=== PATIENT | male | born 1940 | race Caucasian/White ===

== ENCOUNTER 2018-06-08 08:44 | Inpatient (IN) | payer OTHER ==
[2018-06-08] MEDS ORDERED: fentaNYL 100 MCG/2 ML INJ ONE ×3 (08:51→09:09)
[2018-06-08 09:05] LABS: PLATELET COUNT 218 10^3/uL (150-400)
[2018-06-08] MEDS ORDERED: IOPAMIDOL (ISOVUE-300) 100 ML BTL ONE (09:06)
[2018-06-08 09:22] LABS: INR 1.07 (0.83-1.16); PROTIME(PATIENT) 14.1 SEC (12.0-15.0)
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
[2018-06-08] MEDS ORDERED: ONDANSETRON DISINTEGRATING 4 MG TAB PO PRN (09:57)
[2018-06-08] MEDS ORDERED: ONDANSETRON 4 MG/2 ML VIAL IVP PRN (09:57)
[2018-06-08] MEDS ORDERED: ACETAMINOPHEN 325 MG TAB PO PRN (09:57)
[2018-06-08] MEDS: HYDROCODONE/APAP 5/325 TAB PO PRN (11:02)
--- NOTE | 2018-06-08 12:25 | ASMTCAGE ---
CAGE Additional Comments CAGE questions not applicable, alcohol not a factor, pt denies drinking Date Signed: 06/08/2018 12:25 PM Electronically Signed By:Loulou Balderas RN
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
[2018-06-08] MEDS: IBUPROFEN 600 MG TAB PO SCH ×2 (14:37→22:27)
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
[2018-06-08] MEDS: sulfaSALAzine 500 MG TAB PO SCH (22:30)
[2018-06-09] MEDS: IBUPROFEN 600 MG TAB PO SCH ×3 (05:15→21:18)
[2018-06-09 05:44] LABS: PLATELET COUNT 174 10^3/uL (150-400)
[2018-06-09] MEDS ORDERED: ESCITALOPRAM OXALATE 10 MG TAB PO SCH (09:00)
[2018-06-09] MEDS ORDERED: FLUTICASONE/SALMETER 250/50MCG DISKUS IH SCH (09:00)
[2018-06-09] MEDS: sulfaSALAzine 500 MG TAB PO SCH ×2 (09:13→20:07)
[2018-06-09] MEDS: ENOXAPARIN 40 MG/0.4 ML SYR SC SCH (09:17)
[2018-06-09] MEDS: HYDROCODONE/APAP 5/325 TAB PO PRN (12:23)
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
[2018-06-10] MEDS: IBUPROFEN 600 MG TAB PO SCH (05:31)
[2018-06-10] MEDS ORDERED: LACTULOSE 20 GM/30 ML UDCUP PO PRN (07:51)
[2018-06-10] MEDS ORDERED: POLYETHYLENE GLYCOL 3350 17 GM PKT PO PRN (07:51)
[2018-06-10] MEDS ORDERED: BISACODYL 10 MG SUPP PR PRN (07:51)
[2018-06-10] MEDS ORDERED: MAGNESIUM HYDROXIDE 30 ML UDCUP PO PRN (07:51)
[2018-06-10] MEDS: SENNOSIDES/DOCUSATE SODIUM TAB PO SCH ×2 (08:54→20:58)
[2018-06-10] MEDS: FLUTICASONE/SALMETER 250/50MCG DISKUS IH SCH (08:54)
[2018-06-10] MEDS: sulfaSALAzine 500 MG TAB PO SCH ×2 (08:55→20:58)
[2018-06-10] MEDS: ESCITALOPRAM 20 MG PO SCH (08:59)
[2018-06-10] MEDS ORDERED: ESCITALOPRAM OXALATE 10 MG TAB PO SCH (09:00)
[2018-06-10] MEDS: ENOXAPARIN 40 MG/0.4 ML SYR SC SCH (09:01)
[2018-06-10] MEDS ORDERED: CYCLOBENZAPRINE 10 MG TAB PO PRN (09:38)
[2018-06-10] MEDS ORDERED: PANTOPRAZOLE SODIUM 40 MG TAB PO ONE (09:41)
--- NOTE | 2018-06-10 09:46 | TRAUMAPN ---
Trauma Progress Note - Problem/Surgery Performed (1) Pneumothorax Assessment/Plan: 06/10/2018 Assessment: Pain control has been an issue, ~ 90cc out last 24 hours, no air leak , tiny apical PTX on CXR, IS to 1999 Plan: Adjust pain meds Chest tube off suction CXR in AM work on pulmonary toilet Qualifiers: Pneumothorax type: traumatic Assessment/Plan: 06/10/2018 Assessment: C/o right shoulder pain. but no structural abnormality on exam - contusion Pain: See how he responds to adjusted pain meds Subjective: pain has been an issue No stool/flatus yet Objective: Vital Signs Temp Pulse Resp BP Pulse Ox 36.3 C 59 L 18 121/78 H 95 06/10/18 07:27 06/10/18 07:27 06/10/18 07:27 06/10/18 07:27 06/10/18 07:27 Laboratory Results 06/09/18 05:10 06/09/18 06/10/18 06/11/18 05:59 05:59 05:59 Intake Total 1250 1100 Output Total 325 886 Balance 925 214 PT 14.1 SEC (12.0-15.0) 06/08/18 08:54 INR 1.07 (0.83-1.16) 06/08/18 08:54 Physical Exam - Physical Exam General Appearance: WD/WN, alert, mild distress Neck: non-tender, full range of motion, supple Respiratory: lungs clear (But E to A changes in left base) Cardiac/Chest: normal peripheral pulses, regular rate, rhythm Abdomen: non-tender, soft, other (no stool yet) Male Genitalia: deferred Rectal: deferred Back: Normal inspection Skin: normal color, warm/dry Neuro/Psych: no motor/sensory deficits, alert, normal mood/affect, oriented x 3 Time Spent w/Patient (minutes): 25
--- NOTE | 2018-06-10 10:44 | ASMTCMCOM ---
CM Note CM Note Notes: CM spoke to NYA Garza regarding d/c POC. Therapies have cleared pt to discharge home without any needs. Pt will most likely have his chest tubes pulled tomorrow if he continues to progress in the right direction. No other needs identified at this time. CM available for changes. Plan: Independent Date Signed: 06/10/2018 10:43 AM Electronically Signed By:SERENITY Ruffin
[2018-06-10] MEDS: LIDOCAINE 4%/MENTHOL 1% PATCH TD SCH (12:03)
[2018-06-10] MEDS: KETOROLAC 15 MG/1 ML SDV IVP SCH ×2 (12:03→18:15)
[2018-06-10] MEDS: ACETAMINOPHEN 500 MG TAB PO SCH ×2 (13:54→20:57)
[2018-06-10] MEDS: HYDROmorphONE/DILAUDID 2 MG TAB PO PRN (20:57)
[2018-06-10] MEDS: PATCH REMOVAL 1 EA PATCH TD SCH (21:16)
[2018-06-11] MEDS: KETOROLAC 15 MG/1 ML SDV IVP SCH ×4 (00:58→17:48)
[2018-06-11] MEDS: ACETAMINOPHEN 500 MG TAB PO SCH ×3 (05:58→20:55)
[2018-06-11] MEDS: FLUTICASONE/SALMETER 250/50MCG DISKUS IH SCH (09:43)
[2018-06-11] MEDS: ESCITALOPRAM 20 MG PO SCH (09:50)
[2018-06-11] MEDS: sulfaSALAzine 500 MG TAB PO SCH ×2 (09:51→20:54)
[2018-06-11] MEDS: LIDOCAINE 4%/MENTHOL 1% PATCH TD SCH (10:04)
[2018-06-11] MEDS: ENOXAPARIN 40 MG/0.4 ML SYR SC SCH (10:05)
[2018-06-11] MEDS: SENNOSIDES/DOCUSATE SODIUM TAB PO SCH ×2 (10:05→21:59)
--- NOTE | 2018-06-11 17:52 | TRAUMAPN ---
Trauma Progress Note - Problem/Surgery Performed (1) Pneumothorax Assessment/Plan: 06/10/2018 Assessment: Pain control has been an issue, ~ 90cc out last 24 hours, no air leak , tiny apical PTX on CXR, IS to 1999 Plan: Adjust pain meds Chest tube off suction CXR in AM work on pulmonary toilet 06/11/2018 Assessment: Pain control improved. No air leak. Tiny apical PTX continues. Chest tube out. Plan: F/u CXR in AM Qualifiers: Pneumothorax type: traumatic Assessment/Plan: 06/10/2018 Assessment: C/o right shoulder pain. but no structural abnormality on exam - contusion Pain: See how he responds to adjusted pain meds Subjective: I'm feeling better Objective: Vital Signs Temp Pulse Resp BP Pulse Ox 37.0 C 64 16 131/77 H 94 06/11/18 16:00 06/11/18 16:00 06/11/18 16:00 06/11/18 16:00 06/11/18 16:00 Laboratory Results 06/09/18 05:10 06/10/18 06/11/18 06/12/18 05:59 05:59 05:59 Intake Total 1100 1450 Output Total 886 510 Balance 214 940 PT 14.1 SEC (12.0-15.0) 06/08/18 08:54 INR 1.07 (0.83-1.16) 06/08/18 08:54 Physical Exam - Physical Exam General Appearance: WD/WN, alert, no apparent distress Respiratory: chest non-tender, lungs clear, normal breath sounds Cardiac/Chest: regular rate, rhythm Abdomen: normal bowel sounds, non-tender, soft Male Genitalia: deferred Rectal: deferred, black stool Skin: normal color, warm/dry Lymphatic: no adenopathy Extremities: normal range of motion Neuro/Psych: no motor/sensory deficits, alert, normal mood/affect, oriented x 3 Time Spent w/Patient (minutes): 25
[2018-06-11] MEDS: PATCH REMOVAL 1 EA PATCH TD SCH (20:56)
[2018-06-12] MEDS: KETOROLAC 15 MG/1 ML SDV IVP SCH ×3 (00:28→12:05)
[2018-06-12] MEDS: ACETAMINOPHEN 500 MG TAB PO SCH ×2 (05:31→14:24)
[2018-06-12] MEDS: sulfaSALAzine 500 MG TAB PO SCH (08:04)
[2018-06-12] MEDS: ENOXAPARIN 40 MG/0.4 ML SYR SC SCH (08:04)
[2018-06-12] MEDS: ESCITALOPRAM 20 MG PO SCH (08:05)
[2018-06-12] MEDS: LIDOCAINE 4%/MENTHOL 1% PATCH TD SCH ×2 (08:06→15:45)
[2018-06-12] MEDS: FLUTICASONE/SALMETER 250/50MCG DISKUS IH SCH (08:07)
[2018-06-12] MEDS: SENNOSIDES/DOCUSATE SODIUM TAB PO SCH (08:09)
--- NOTE | 2018-06-12 14:46 | ASMTCMCOM ---
CM Note CM Note Notes: Pt's chest tube removed, anticipate that pt will dc home w/support of his when medically stable. CM available for any changes. DC plan: Independent Date Signed: 06/12/2018 02:45 PM Electronically Signed By:Sydney Malone RN
--- NOTE | 2018-06-12 15:56 | TRAUMAPN ---
Trauma Progress Note - Problem/Surgery Performed (1) Pneumothorax Assessment/Plan: 06/10/2018 Assessment: Pain control has been an issue, ~ 90cc out last 24 hours, no air leak , tiny apical PTX on CXR, IS to 1999 Plan: Adjust pain meds Chest tube off suction CXR in AM work on pulmonary toilet 06/11/2018 Assessment: Pain control improved. No air leak. Tiny apical PTX continues. Chest tube out. Plan: F/u CXR in AM 06/12/2018 Assessment: CXR shows lung to be up with minimal effusion/atelectasis Plan: discharge Qualifiers: Pneumothorax type: traumatic Assessment/Plan: 06/10/2018 Assessment: C/o right shoulder pain. but no structural abnormality on exam - contusion Pain: See how he responds to adjusted pain meds Objective: Vital Signs Temp Pulse Resp BP Pulse Ox 36.3 C 55 L 18 130/80 H 95 06/12/18 12:00 06/12/18 12:00 06/12/18 12:00 06/12/18 12:00 06/12/18 12:00 Laboratory Results 06/09/18 05:10 06/11/18 06/12/18 06/13/18 05:59 05:59 05:59 Intake Total 1450 350 Output Total 510 400 Balance 940 -50 PT 14.1 SEC (12.0-15.0) 06/08/18 08:54 INR 1.07 (0.83-1.16) 06/08/18 08:54 Physical Exam - Physical Exam General Appearance: WD/WN, alert, no apparent distress Neck: non-tender, full range of motion, supple Respiratory: lungs clear, normal breath sounds, other (right lateral chest tender to palpation over fracture sites.) Cardiac/Chest: regular rate, rhythm Abdomen: normal bowel sounds, non-tender, soft Male Genitalia: deferred Rectal: deferred Back: Normal inspection Skin: normal color, warm/dry Time Spent w/Patient (minutes): 15
[2018-06-12 16:29] VITALS: BP 142/77
[2018-06-12] MEDS: HYDROmorphONE/DILAUDID 2 MG TAB PO PRN (16:49)
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
== END 2018-06-12 16:53 | disposition home or self-care (01) | DRG 200 ==
LOC: EDUNIT# → F3E 10:44
PROVIDERS: ADMIT Surgery; ATTEND Surgery
PROC: 0W9930Z Drainage of Right Pleural Cavity with Drainage Device, Percutaneous Approach (ICD-10-PCS; principal; 2018-06-08)
DX: S27.0XXA Traumatic pneumothorax, initial encounter (principal); S22.41XA Multiple fractures of ribs, right side, initial encounter for closed fracture; S51.811A Laceration without foreign body of right forearm, initial encounter; Y93.55 Activity, bike riding; V10.0XXA Pedal cycle driver injured in collision with pedestrian or animal in nontraffic accident, initial encounter; Y92.838 Other recreation area as the place of occurrence of the external cause; M06.9 Rheumatoid arthritis, unspecified; C85.90 Non-Hodgkin lymphoma, unspecified, unspecified site
CPT/HCPCS: 80305; 82435-PO; 82565-PO; 82947-PO; 84132-PO; 84295-PO; 84520-PO; 85014-PO; 92523-GN; 97116-GP; 97162-GP; 97166-GO; 97530-GP; 97535-GO; G0480; G8978-GP-CK; G8979-GP-CI; G8987-GO-CJ; G8988-GO-CI; G8989-GO-CI; G9165-GN-CH; G9166-GN-CH; G9167-GN-CH; J1650; J1885; J2270; J2405; J3010; Q9967